=== PATIENT | male | born 1950 | race African-American/Black ===

== ENCOUNTER 2017-05-21 08:05 | Outpatient (CLI) | payer MEDICARE, MEDICAID ==
[~2017-05-21 08:05] MED LIST: Gadobenate Dimeglumine 529 MG/1 ML (20ML VIAL) ONE
--- NOTE | 2017-05-21 09:11 | RAD ---
TWO VIEWS RIGHT HIP: Date: 05-21-17 History: Bilateral leg pain and numbness for one year. Pain in right hip. FINDINGS: There is no evidence of a fracture, dislocation involving the right hip. There is irregularity involv ing the left inferior pubic ramus, but the pelvis is rotated and I am not sure if this represents a r emote fracture or related to patient rotation. There is no acute fracture seen. Phleboliths and vascu lar calcifications overlie the pelvis. Degenerative changes seen in the spine with what appears to be laminectomy defects present within the lower lumbar spine. IMPRESSION: No acute osseous abnormality right hip. POS: RAYA
--- NOTE | 2017-05-21 11:33 | MRI ---
MRI CERVICAL SPINE NONCONTRAST: Date: 05/21/17 HISTORY: 66-year-old male with M54.12 cervical radiculopathy Cervicalgia. COMPARISON: None. FINDINGS: The lingual tonsil is diffusely thickened. The cervical spinal cord is normal in size and signal. No Chiari I malformation. Severe disc space narrowing at C4-5, C5-6, and C6-7. Moderate disc space narro wing at C3-4. Heterogeneous, mixed signal abnormality of the bone marrow at C3, C4, C5, C6, and C7, i ncluding bone marrow edema and sclerosis. These may all represent a combination of severe Modic Type I changes and Modic Type III changes. Broad based disc-osteophytic bar complexes encroach upon the an terior aspect of the spinal canal at all levels from C2-3 through C7-T1, with the relative exception of C5-6. Bilateral prominent uncinate process osteophytes encroach upon the bilateral neural foramina , causing neural foraminal stenosis at all levels from C2-3 through C7-T1. There is bone marrow edema involving the right facet complex at C4-5. There is a small right facet joint effusion at C4-5. Ther e are degenerative facet changes throughout all levels bilaterally, mild and moderate. The findings, with respect of the central spinal canal stenosis and neural foraminal stenosis, by ind ividual levels, are as follows: C1-2: No central stenosis. C2-3: Mild to moderate central stenosis. Mild to moderate bilateral neural foraminal stenosis. C3-4: Moderate central stenosis. Moderate right neural foraminal stenosis. Severe left neural foraminal eloina nosis. C4-5: Severe central stenosis, with the broad based disc-osteophytic bar complex indenting the ventral surf erick of the spinal cord, and thickened ligamentum flavum indenting the dorsal surface of the spinal co rd. The CSF signal is completely obliterated. Severe bilateral neural foraminal stenosis. C5-6: Mild to moderate central spinal canal stenosis. Severe bilateral neural foraminal stenosis. C6-7: Disc-osteophytic bar complex slightly indents the ventral surface of the spinal cord. Thickened ligam entum flavum abuts the dorsal surface of the spinal cord. Severe central spinal canal stenosis. CSF s ignal is partially effaced. Severe bilateral neural foraminal stenosis. C7-T1: Mild to moderate central spinal canal stenosis. Severe bilateral neural foraminal stenosis, right wor se than left. IMPRESSION: 1. Severe cervical spondylosis, with multilevel severe degenerative disc disease. 2. Multiple levels of severe central spinal canal stenosis and severe bilateral neural foraminal eloina nosis. 3. The worst level is C4-5 where there is chronic cord impingement greater than at other levels. 4. Extensive bone marrow signal abnormality of vertebral bodies throughout most levels, probably rep resenting a mixture of severe Modic Type I and Type III changes; and right-sided facet arthritis at C 4-5. 5. Enlargement of the lingual tonsil. Recommend ENT consultation for direct visualization to rule ou t the possibility of malignancy at base of tongue. CODE T. POS: CHAYA
--- NOTE | 2017-05-21 12:22 | MRI ---
MRI LUMBAR SPINE WITH AND WITHOUT CONTRAST: DATE: 05/21/17 HISTORY: 66-year-old male with M54.16 lumbar radiculopathy. Low back pain and bilateral lower extremity pain and hypesthesia for 1 year. COMPARISON: None. TECHNIQUE: Multiple sequences obtained in axial and sagittal planes, pre and post IV injection of gadolinium-bas ed contrast agent: 15 mL MultiHance. FINDINGS: There are five lumbar-type vertebrae. T12-L1: Normal. L1-2: Disc space maintained. Minimal disc bulge. No central stenosis. Mild ligamentum flavum thickening. Mi ld right neural foraminal stenosis. Disc space maintained. L2-3: Minimal disc space narrowing. Diffuse, moderate disc bulge encroaches upon the spinal canal. In addit ion to the disc bulge, there is a superimposed small central disc extrusion with superior migration, not quite reaching the pedicle level of L2. Despite these, there is accommodation, due to midline ansari inectomy defect, such that the degree of central spinal canal stenosis is only mild. Moderate to moises re bilateral neural foraminal stenosis. L3-4: Severe disc space narrowing, extensive irregularity of end plates, and diffuse heterogeneous bone mar row signal abnormality of the entire L3 and L4 vertebral bodies, including bone marrow edema (presuma amelie representing severe Modic Type I changes, and less likely to represent osteomyelitis or metastase s), and enhancement of the edematous portions of the bone marrow. There are severe bilateral degenera tive facet changes that cause a Grade I anterolisthesis of L3 on L4. There is a diffuse, prominent di sc bulge. There is moderate to severe left neural foraminal stenosis, with deformation of the exiting left L3 nerve root. There is very severe right neural foraminal stenosis, with obliteration of the n eural foraminal fat signal, and severe chronic compression and deformation of the exiting right L3 ne rve root into a thin, flat band. The anteroposterior dimension of the spinal canal and thecal sac is only mildly narrowed, due to midline laminectomy defect. The transverse diameter of the spinal canal and thecal sac are narrowed to a moderate degree. L4-5: Moderate to severe disc space narrowing. Diffusely T2 hyperintense signal in the disc space, without significant enhancement, consistent with diffuse annular tears. Moderately large, diffuse, circumfer ential disc bulge-osteophytic bar complex. Midline laminectomy defect accommodates this, such that th e anteroposterior dimension of the spinal canal and thecal sac is not significantly narrowed. There i s bilateral moderate degenerative facet hypertrophy, resulting in moderate narrowing of the transvers e dimension of the spinal canal and thecal sac. There is lateral recess stenosis bilaterally. There i s moderate right neural foraminal stenosis and severe left neural foraminal stenosis. L5-S1: Severe disc space narrowing, Modic Type III end plate marrow changes. Diffuse disc bulge-osteophytic bar complex circumferentially. Moderate to severe bilateral neural foraminal stenosis. Midline ryan ctomy defect. No central spinal canal stenosis. Mild right lateral recess stenosis. IMPRESSION: 1. Extremely severe right neural foraminal stenosis at L3-4, severely chronically compressing the ex iting right L3 nerve root. 2. Multiple other levels of high grade bilateral neural foraminal stenosis. 3. Severe degenerative disc disease at L3-4, associated with extensive bone marrow edema (presumably representing severe Modic Type I changes). 4. Prominent Grade I spondylolisthesis at L3-4 due to facet osteoarthrosis. 5. Status post midline laminectomies at L2-3, L3-4, L4-5, and L5-S1. 6. Moderate degenerative disc disease at L4-5 and L5-S1. LISS Valle POS: CHAYA
== END 2017-05-21 08:06 | disposition home or self-care (01) ==
LOC: TBSIIMAG 08:05
PROVIDERS: ATTEND Neurological Surgery
DX: M51.17 Intervertebral disc disorders with radiculopathy, lumbosacral region (principal); M43.16 Spondylolisthesis, lumbar region; M99.53 Intervertebral disc stenosis of neural canal of lumbar region; R60.0 Localized edema; M47.22 Other spondylosis with radiculopathy, cervical region; M50.10 Cervical disc disorder with radiculopathy, unspecified cervical region; M48.02 Spinal stenosis, cervical region; M99.51 Intervertebral disc stenosis of neural canal of cervical region; J35.1 Hypertrophy of tonsils
CPT/HCPCS: 72141; 72158; A9579

== ENCOUNTER 2017-12-21 00:05 | Inpatient (IN) | payer MEDICARE, MEDICAID ==
[2017-12-21 01:39] LABS: #Basophils 0.1 thou/uL (0.0-0.2); #Eosinphils 0.1 thou/uL (0.0-0.7); #Lymphocytes 3.1 thou/uL (1.20-3.40); #Monocytes 0.9 thou/uL (0.11-0.59); #Neutrophils 4.6 thou/uL (1.40-6.50); %Basophils 1.1 % (0.0-1.0); %Eosinophils 0.8 % (0.0-10.0); %Lymphocytes 35.4 % (21.0-51.0); %Neutrophils 52.7 % (42.0-75.0); Hemoglobin 13.6 g/dL (14.0-18.0); Mean Corpuscular Hemoglobin 33.8 pg (27.0-31.0); Mean Corpuscular Volume 99.4 fL (78.0-98.0); Mean Platelet Volume 7.1 fL (7.4-10.4); Platelet Count 269 thou/uL (130-400); RBC Distribution Width 13.1 % (11.5-14.5); Red Blood Cell (RBC) Count 4.02 mill/uL (4.70-6.10); White Blood Cell (WBC) Count 8.7 thou/uL (4.8-10.8)
[2017-12-21 01:55] LABS: ALT (SGPT) 15 U/L (8-55); AST (SGOT) 27 U/L (5-34); Albumin 3.4 g/dL (3.4-4.8); Alkaline Phosphatase 85 U/L (40-150); Anion Gap 12 mmol/L (10-20); BUN (Urea Nitrogen) 10 mg/dL (8.4-25.7); Bilirubin, Total 0.2 mg/dL (0.2-1.2); CK (CPK) 198 U/L (30-200); Calc. Creatinine Clearance 0 mL/min (70-130); Calcium 8.2 mg/dL (7.8-10.44); Carbon Dioxide 21 mmol/L (23-31); Chloride 110 mmol/L (98-107); Estimated GFR-MDRD 86; Globulin 2.9 g/dL (2.4-3.5); Glucose 116 mg/dL (80-115); Potassium 3.1 mmol/L (3.5-5.1); Protein, Total 6.3 g/dL (5.8-8.1); Sodium 140 mmol/L (136-145)
[2017-12-21 01:56] LABS: Acetaminophen Less than 6.0 mcg/mL (10.0-30.0); Alcohol 85 mg/dL (Less than 10); Salicylate Less than 8.0 mg/dL (15.0-30.0)
[2017-12-21 04:36] VITALS: BMI 21.3
[2017-12-21] MEDS ORDERED: Ondansetron HCl/PF 4 MG/2 ML Vial IVP PRN (04:37)
[2017-12-21] MEDS ORDERED: Acetaminophen 325 MG TAB PO PRN (04:37)
[2017-12-21] MEDS ORDERED: Ondansetron ODT 4 MG TAB SL PRN (04:37)
[2017-12-21] MEDS: Sodium Chloride 0.9% 1,000 ML IV SCH ×2 (06:09→15:51)
[2017-12-21] MEDS ORDERED: Potassium Chloride 20 MEQ TAB PO SCH (08:00)
--- NOTE | 2017-12-21 13:07 | EKG ---
Test Reason : OD Blood Pressure : / mmHG Vent. Rate : 067 BPM Atrial Rate : 067 BPM P-R Int : 232 ms QRS Dur : 092 ms QT Int : 464 ms P-R-T Axes : 083 062 076 degrees QTc Int : 490 ms Sinus rhythm with 1st degree A-V block with Premature atrial complexes Minimal voltage criteria for LVH, may be normal variant Nonspecific T wave abnormality Prolonged QT Abnormal ECG Confirmed by JA GUY MD ([id number]), department editor CUONG WHEELER ([id number]) on 12/21/2017 1:02:53 PM Also confirmed by JA GUY MD ([id number]), department editor CUONG WHEELER ([id number]) on 12/21/2017 1:06:59 PM Referred By: Confirmed By:JA GUY MD
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
[2017-12-21 15:19] LABS: Amphetamine Not Detected (NotDetected); Barbiturates Screen Not Detected (NotDetected); Benzodiazepine Screen Not Detected (NotDetected); Cocaine Metabolite Screen Detected (NotDetected); Medtox Control Line Valid? VALID (VALID); Medtox Reader # READER 1; Methadone Not Detected (NotDetected); Methamphetamine Not Detected (NotDetected); Opiate Screen Not Detected (NotDetected); Oxycodone Screen Not Detected (NotDetected); Phencyclidine (PCP) Not Detected (NotDetected); THC/Cannabinoid Screen Not Detected (NotDetected); Tricyclic Screen Not Detected (NotDetected)
[2017-12-21 15:26] VITALS: BP 143/81; TEMP 97.6
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
== END 2017-12-21 19:35 | disposition home or self-care (01) | DRG 918 ==
LOC: ERS 00:05 → IMCU/EMU 03:00
PROVIDERS: ADMIT Internal Medicine; ATTEND Internal Medicine
DX: T46.7X2A Poisoning by peripheral vasodilators, intentional self-harm, initial encounter (principal); F43.10 Post-traumatic stress disorder, unspecified; F43.20 Adjustment disorder, unspecified; M51.36 Other intervertebral disc degeneration, lumbar region; G62.9 Polyneuropathy, unspecified; F17.210 Nicotine dependence, cigarettes, uncomplicated; F10.10 Alcohol abuse, uncomplicated; Y90.4 Blood alcohol level of 80-99 mg/100 ml; Y92.009 Unspecified place in unspecified non-institutional (private) residence as the place of occurrence of the external cause
CPT/HCPCS: 36415; 80053; 80306; 80307; 82550; 84443; 85025; 93005; A4216

== ENCOUNTER 2023-05-01 07:30 | Emergency (ER) | payer MEDICAID, MEDICARE, OTHER ==
[2023-05-01 08:03] LABS: #Basophils 0.1 thou/uL (0.0-0.2); #Eosinphils 0.4 thou/uL (0.0-0.7); #Monocytes 0.6 thou/uL (0.11-0.59); %Eosinophils 6.7 % (0.0-10.0); %Lymphocytes 33.7 % (21.0-51.0); %Monocytes 10.2 % (0.0-10.0); %Neutrophils 48.2 % (42.0-75.0); Hematocrit 47.3 % (42.0-52.0); Hemoglobin 16.5 g/dL (14.0-18.0); Mean Corpuscular HGB CONC 34.9 g/dL (32.0-36.0); Mean Corpuscular Hemoglobin 33.9 pg (27.0-31.0); Mean Corpuscular Volume 97.1 fl (78.0-98.0); Mean Platelet Volume 9.9 fL (7.4-10.4); Platelet Count 369 10x3/uL (130-400); RBC Distribution Width 13.4 % (11.5-14.5); Red Blood Cell (RBC) Count 4.87 mill/uL (4.70-6.10); White Blood Cell (WBC) Count 6.3 10x3/uL (4.8-10.8)
[2023-05-01] MEDS ORDERED: methylPREDNISolone Sod Succ/PF 125 MG/2 ML VIAL ONE (08:06)
[2023-05-01] MEDS ORDERED: Ipratropium/Albuterol 3 ML NEB ONE (08:08)
[2023-05-01 08:30] LABS: ALT (SGPT) 35 U/L (8-55); AST (SGOT) 53 U/L (5-34); Albumin 4.6 g/dL (3.4-4.8); Alkaline Phosphatase 115 U/L (40-110); Anion Gap 14 mmol/L (10-20); BUN (Urea Nitrogen) 12 mg/dL (8.4-25.7); Bilirubin, Total 0.4 mg/dL (0.2-1.2); Calc. Creatinine Clearance 0 mL/min (70-130); Calcium 9.8 mg/dL (7.8-10.44); Carbon Dioxide 22 mmol/L (23-31); Chloride 107 mmol/L (98-107); Estimated GFR 80; Globulin 4.1 g/dL (2.4-3.5); Glucose 85 mg/dL (83-110); Potassium 4.3 mmol/L (3.5-5.1); Protein, Total 8.7 g/dL (5.8-8.1); Sodium 139 mmol/L (136-145); Troponin I Less than 0.010 ng/mL (< 0.028)
[2023-05-01 08:57] LABS: INR-International Normal Ratio 0.9; Prothrombin Time 12.6 sec (12.0-14.7)
[2023-05-01 08:58] LABS: PTT 32.3 sec (22.9-36.1)
== END 2023-05-01 09:47 | disposition home or self-care (01) ==
LOC: ERS 07:30
DX: J44.1 Chronic obstructive pulmonary disease with (acute) exacerbation (principal); E78.00 Pure hypercholesterolemia, unspecified; I10 Essential (primary) hypertension; Z79.82 Long term (current) use of aspirin; Z79.899 Other long term (current) drug therapy
CPT/HCPCS: 36415; 71045; 80053; 83605; 83880; 84484; 85025; 85610; 85730; 87040; 93005; 94640; 94760; 96374; J2930; J7620

== ENCOUNTER 2023-08-14 14:21 | Outpatient (CLI) | payer OTHER, MEDICAID | END 2023-08-14 14:22 | disposition home or self-care (01) | LOC: BICULT 14:21 | PROVIDERS: ATTEND Nurse Practitioner Family | DX: R09.89 Other specified symptoms and signs involving the circulatory and respiratory systems (principal); I25.10 Atherosclerotic heart disease of native coronary artery without angina pectoris | CPT/HCPCS: 93923 ==